=== PATIENT | male | born 1970 | race Caucasian/White ===

== ENCOUNTER 2021-07-01 23:49 | Inpatient (IN) | payer OTHER, SELFPAY ==
[2021-07-01 23:56] VITALS: BP 105/73; PULSE 95; RESP 18; TEMP 37.3; O2SAT 96; BMI 25.1
--- NOTE | 2021-07-01 23:57 | ED_ITS ---
HPI - Psych General Chief Complaint: Psychiatric Symptoms Stated Complaint: si Time Seen by Provider: 07/01/21 23:57 Source: patient Mode of arrival: EMS Limitations: no limitations History of Present Illness MD complaint: suicidal ideation and feels depressed Onset (ago): day(s) Duration: getting worse History of same: No Relieving factors: none Context: significant life stressor Associated psychiatric symptoms: depression and suicidal ideation Associated symptoms: denies other symptoms Treatments prior to arrival: none If self harm: admits thoughts of self harm Related Data Allergies Allergy/AdvReac Type Severity Reaction Status Date / Time atorvastatin [From Lipitor] Allergy Intermediate Rash Verified 07/02/21 00:13 Review of Systems Review of Systems: Constitutional : No Fever, No Chills ENT/Mouth : No Ear Pain, No Nasal Congestion, No sore throat Eyes: No Eye Pain, No Swelling, No Redness Cardiovascular : No Chest Pain, No SOB Respiratory : No Cough, No Sputum, No Dyspnea Gastrointestinal : No Nausea, No Vomiting, No Diarrhea, No Hematochezia, No Melena Genitourinary : No Dysuria, No Urinary Frequency, No Hematuria Musculoskeletal : No Myalgias Skin : No Skin Lesions, No rash Neuro : No Weakness, No Numbness, No Paresthesias, No Dizziness, No Headache Psych : positive Anxiety, positive Depression, positive SI no HI Heme/Lymph: No Lymphadenopathy Endocrine : No Polyuria, No Polydipsia All other systems reviewed and are negative [facility] Past Medical History Attestation statement: The following information was validated with the patient. Medical History CAD (coronary artery disease) Social History Social History (Updated 07/02/21 @ 00:28 by Dacia Chapin DO) Patient Tobacco Use Status: Current everyday Tobacco user Use of substances other than those prescribed or required for medical reasons: No Advance Directives: No Advance Directives Information Provided: Yes Physical Exam Vital Signs: Vital Signs: Last Vital Signs Temp 99.1 F 07/01/21 23:56 Pulse 95 07/01/21 23:56 Resp 18 07/01/21 23:56 BP 105/73 07/01/21 23:56 Pulse Ox 96 07/01/21 23:56 Body Mass Index 25.1 Appearance: Alert. Oriented X3. No acute distress. Eyes: Pupils equal, round and reactive to light. ENT: Pharynx normal. Neck: Normal inspection. Neck supple. CVS: Normal heart rate and rhythm. Pulses normal. Respiratory: No respiratory distress. Breath sounds normal. Abdomen: Soft and non-tender. Skin: Skin warm and dry. Normal skin color. Normal skin turgor. Extremities: No lower extremity edema. No calf ttp Neuro: Oriented X 3. No motor deficit. No sensory deficit. CN 2- 12 intact Psych: depressed, calm, flat affect Course Course Course Narrative: Physician observation started at 135am Patient placed in physician observation because the patient needed more time for placement after he was deemed an inpatient bed search by care team. At the time observation was started the patient's vitals were stable, patient is alert and oriented but slightly anxious, Neuro: nonfocal, CV RRR, Lungs clear MDM - Psych MDM Narrative Medical decision making narrative: 50 yo male here with depression and SI - no medical complaints will obtain labs then CARE team consult - dispo per results a nd findings. Lab Data Result diagrams: 07/02/21 00:23 07/02/21 00:23 Labs: Lab Results 07/02/21 07/02/21 07/02/21 Range/Units 00:10 00:11 00:11 WBC (4.8-10.8) X10*3/uL RBC (4.60-5.80) X10*6/uL Hgb (14.0-18.0) g/dl Hct (42.0-52.0) % MCV (80.0-98.0) fL MCH (27.0-33.0) pg MCHC (31.0-36.0) g/dl RDW (11.0-16.0) % Plt Count (160-400) X10*3/uL MPV (9.4-12.4) fL Immature Gran % (Auto) (0.0-0.4) % Neut % (Auto) (45-73) % Lymph % (Auto) (20-40) % [place] % (Auto) (2-11) % Eos % (Auto) (0-4) % Baso % (Auto) (0-2) % Lymph # (Auto) (1.2-4.9) X10*3/uL [place] # (Auto) (0.1-1.2) X10*3/uL Eos # (Auto) (0.0-0.4) X10*3/uL Baso # (Auto) (0.0-0.2) X10*3/uL Abs Immat Gran (auto) (0.00-0.03) X10*3/uL Absolute Neuts (auto) (2.0-8.3) x10*3/uL Absolute Nucleated RBC (0.0-0.012) X10*3/uL Nucleated RBC % (auto) (0.0-0.2) /100WBC Sodium (135-145) mmol/L Potassium (3.3-5.1) mmol/L Chloride (96-108) mmol/L Carbon Dioxide (22-29) mmol/L Anion Gap (12-20) BUN (9-16) mg/dL Creatinine (0.5-1.4) mg/dL Estim Creat Clear Calc Estimated GFR Random Glucose (60-115) mg/dL Calcium (8.4-10.2) mg/dL Total Bilirubin (0.0-1.0) mg/dL Direct Bilirubin (0.0-0.5) mg/dL AST (5-37) U/L ALT (0-40) U/L Alkaline Phosphatase (39-117) U/L Total Protein (6.5-8.0) g/dL Albumin (3.5-5.0) g/dL Urine Color YELLOW Urine Appearance CLEAR Urine pH 6.0 (5.0-8.0) Ur Specific [place] >= 1.030 H (1.005-1.025) Urine Protein NEG (NEG-TRACE) MG/DL Urine Glucose (UA) NEG (NEG) MG/DL Urine Ketones 15 (NEG) MG/DL Urine Blood 2+ H (NEG) Urine Nitrite NEG (NEG) Ur Leukocyte Esterase NEG (NEG) Urine RBC 1-4 (0) /HPF Urine WBC 0-2 (0-4) /HPF Ur Squamous Epith Cells TRACE /LPF Urine Bacteria TRACE /LPF Urine Mucus 3+ /LPF Urine Opiates Screen Not Detected (Not Detect) Urine Fentanyl Screen Not Detected (Not Detect) Ur Barbiturates Screen Not Detected (Not Detect) Ur Phencyclidine Scrn Not Detected (Not Detect) Ur Amphetamines Screen Not Detected (Not Detect) U Benzodiazepines Scrn Not Detected (Not Detect) Urine Cocaine Screen Not Detected (Not Detect) U Marijuana (THC) Screen POSITIVE H (Not Detect) Ethyl Alcohol mg/dL COVID-19 ([facility]) Negative (Negative) COVID-19 Clin Com See Note 07/02/21 07/02/21 07/02/21 Range/Units 00:23 00:23 00:23 WBC 10.1 (4.8-10.8) X10*3/uL RBC 4.62 (4.60-5.80) X10*6/uL Hgb 14.9 (14.0-18.0) g/dl Hct 42.3 (42.0-52.0) % MCV 91.6 (80.0-98.0) fL MCH 32.3 (27.0-33.0) pg MCHC 35.2 (31.0-36.0) g/dl RDW 12.0 (11.0-16.0) % Plt Count 293 (160-400) X10*3/uL MPV 9.8 (9.4-12.4) fL Immature Gran % (Auto) 0.2 (0.0-0.4) % Neut % (Auto) 72.9 (45-73) % Lymph % (Auto) 19.0 L (20-40) % [place] % (Auto) 6.3 (2-11) % Eos % (Auto) 0.8 (0-4) % Baso % (Auto) 0.8 (0-2) % Lymph # (Auto) 1.9 (1.2-4.9) X10*3/uL [place] # (Auto) 0.6 (0.1-1.2) X10*3/uL Eos # (Auto) 0.1 (0.0-0.4) X10*3/uL Baso # (Auto) 0.1 (0.0-0.2) X10*3/uL Abs Immat Gran (auto) 0.02 (0.00-0.03) X10*3/uL Absolute Neuts (auto) 7.4 (2.0-8.3) x10*3/uL Absolute Nucleated RBC 0.000 (0.0-0.012) X10*3/uL Nucleated RBC % (auto) 0.0 (0.0-0.2) /100WBC Sodium 138 (135-145) mmol/L Potassium 3.4 (3.3-5.1) mmol/L Chloride 106 (96-108) mmol/L Carbon Dioxide 23 (22-29) mmol/L Anion Gap 12 (12-20) BUN 15 (9-16) mg/dL Creatinine 0.95 (0.5-1.4) mg/dL Estim Creat Clear Calc 91.9 Estimated GFR > 60 Random Glucose 114 (60-115) mg/dL Calcium 9.1 (8.4-10.2) mg/dL Total Bilirubin 0.8 (0.0-1.0) mg/dL Direct Bilirubin 0.3 (0.0-0.5) mg/dL AST 19 (5-37) U/L ALT 12 (0-40) U/L Alkaline Phosphatase 67 (39-117) U/L Total Protein 7.2 (6.5-8.0) g/dL Albumin 4.3 (3.5-5.0) g/dL Urine Color Urine Appearance Urine pH (5.0-8.0) Ur Specific [place] (1.005-1.025) Urine Protein (NEG-TRACE) MG/DL Urine Glucose (UA) (NEG) MG/DL Urine Ketones (NEG) MG/DL Urine Blood (NEG) Urine Nitrite (NEG) Ur Leukocyte Esterase (NEG) Urine RBC (0) /HPF Urine WBC (0-4) /HPF Ur Squamous Epith Cells /LPF Urine Bacteria /LPF Urine Mucus /LPF Urine Opiates Screen (Not Detect) Urine Fentanyl Screen (Not Detect) Ur Barbiturates Screen (Not Detect) Ur Phencyclidine Scrn (Not Detect) Ur Amphetamines Screen (Not Detect) U Benzodiazepines Scrn (Not Detect) Urine Cocaine Screen (Not Detect) U Marijuana (THC) Screen (Not Detect) Ethyl Alcohol < 10 mg/dL COVID-19 ([facility]) (Negative) COVID-19 Clin Com Discharge Plan Discharge Clinical Impression: Depression Qualifiers: Depression Type: unspecified Qualified Code(s): F32.A - Depression, unspecified
[2021-07-02 00:29] LABS: MANUAL DIFF FLAG NO
[2021-07-02 00:36] LABS: Basophils Absolute Auto 0.1 X10*3/uL (0.0-0.2); Basophils Percent Auto 0.8 % (0-2); Eosinophils Absolute Auto 0.1 X10*3/uL (0.0-0.4); Eosinophils Percent Auto 0.8 % (0-4); Hematocrit 42.3 % (42.0-52.0); Hemoglobin 14.9 g/dl (14.0-18.0); Imm Gran Abs Auto 0.02 X10*3/uL (0.00-0.03); Imm Gran Pct Auto 0.2 % (0.0-0.4); Lymphocytes Absolute Auto 1.9 X10*3/uL (1.2-4.9); Mean Corpuscular HGB Conc 35.2 g/dl (31.0-36.0); Mean Corpuscular Hemoglobin 32.3 pg (27.0-33.0); Mean Corpuscular Volume 91.6 fL (80.0-98.0); Mean Platelet Volume 9.8 fL (9.4-12.4); Monocytes Absolute Auto 0.6 X10*3/uL (0.1-1.2); Monocytes Percent Auto 6.3 % (2-11); Neutrophils Absolute Auto 7.4 x10*3/uL (2.0-8.3); Neutrophils Percent Auto 72.9 % (45-73); Platelet Count 293 X10*3/uL (160-400); Red Blood Count 4.62 X10*6/uL (4.60-5.80); White Blood Count 10.1 X10*3/uL (4.8-10.8)
[2021-07-02 00:38] LABS: Appearance Urine CLEAR; Color Urine YELLOW; Glucose Urine UA NEG (NEG); Leukocyte Esterase Urine NEG (NEG); Nitrite Urine NEG (NEG); Specific Gravity - Urine >= 1.030 (1.005-1.025); UACC Culture Trigger NO; Urine Blood 2+ (NEG); Urine Ketones 15 MG/DL (NEG); Urine Protein NEG (NEG-TRACE)
[2021-07-02 00:43] LABS: Bacteria Urine TRACE /LPF; Mucus Urine 3+ /LPF; Squamous Epithelial Cell Urine TRACE /LPF; WBC Urine 0-2 /HPF (0-4)
[2021-07-02 00:50] LABS: COVID-19 Test Negative (Negative); IDNOW Serial# 9DD0AD1C
[2021-07-02 00:53] LABS: Alanine Aminotransferase 12 U/L (0-40); Albumin Level 4.3 g/dL (3.5-5.0); Alkaline Phosphatase 67 U/L (39-117); Anion Gap 12 (12-20); Aspartate Amino Transferase 19 U/L (5-37); Bilirubin Direct 0.3 mg/dL (0.0-0.5); Bilirubin Total 0.8 mg/dL (0.0-1.0); Blood Urea Nitrogen 15 mg/dL (9-16); Calcium 9.1 mg/dL (8.4-10.2); Carbon Dioxide 23 mmol/L (22-29); Chloride 106 mmol/L (96-108); Creatinine Clr Calc Pharmacy 91.9; Estimated Glomerular Filt Rate > 60; Ethanol < 10 mg/dL; Glucose Random 114 mg/dL (60-115); Potassium 3.4 mmol/L (3.3-5.1); Sodium 138 mmol/L (135-145); Total Protein 7.2 g/dL (6.5-8.0)
[2021-07-02 00:56] LABS: Amphetamine Screen Urine Not Detected (Not Detect); Barbiturates, Urine Not Detected (Not Detect); Benzodiazepines Screen Urine Not Detected (Not Detect); Cannabinoid Screen Urine POSITIVE (Not Detect); Cocaine Screen Urine Not Detected (Not Detect); Fentanyl, urine Not Detected (Not Detect); Opiate Screen Urine Not Detected (Not Detect); Phencyclidine Screen Urine Not Detected (Not Detect)
[2021-07-02] MEDS: LORazepam 1 MG TABLET PO (01:39)
--- NOTE | 2021-07-02 05:27 | PC.NURSE ---
Patient slept through the night, no distress observed/reported, patient received Ativan 1 mg for sleep and restlessness before going to bed and had with + effect, VSS, contracted for the safety, behavior appropriate, help seeking,mood depressed and affect flat, patient was assessed by Care Team section 12 inpatient bed search, will continue to monitor.
--- NOTE | 2021-07-02 07:04 | PC.NURSE ---
patient appears to remain asleep at present respirations are even and unlabored, patient appears in no distress
--- NOTE | 2021-07-02 12:18 | PC.NURSE ---
client at this time only wants us to contact/communicate with daughter Eleanor Bravo [phone]
[2021-07-02] MEDS: hydrOXYzine HCL 25 MG TABLET PO (14:54)
--- NOTE | 2021-07-03 | ECG_ITS ---
Test Reason : MED CLEARANCE Blood Pressure : / mmHG Vent. Rate : 074 BPM Atrial Rate : 074 BPM P-R Int : 156 ms QRS Dur : 094 ms QT Int : 372 ms P-R-T Axes : 037 057 052 degrees QTc Int : 412 ms Normal sinus rhythm RSR' or QR pattern in V1 suggests right ventricular conduction delay Otherwise normal ECG No previous ECGs available Referred By: Merrick Gaspar Electronically Signed By:ANNABEL RIVERA MD
--- NOTE | 2021-07-03 06:08 | PC.NURSE ---
Patient slept through he night, no distress observed/reported, behavior appropriate, medication compliant, appetite good, contracted for the safety, disposition per care team is section 12 inpatient bed search, will continue to monitor.
[2021-07-03 06:57] VITALS: BP 110/72; PULSE 87; RESP 17; TEMP 37.1; O2SAT 97
--- NOTE | 2021-07-03 07:06 | PC.NURSE ---
patient appears to remain at rest respirations are even and unlabored, patient appears in no distress
--- NOTE | 2021-07-03 13:15 | PC.NURSE ---
client asked in presence of provider to be given long underwear from closet, searched and provided to patient.
[2021-07-03 16:20] VITALS: BP 121/75; PULSE 90; RESP 18; TEMP 36.1; O2SAT 98
[2021-07-03] MEDS: hydrOXYzine HCL 25 MG TABLET PO (17:16)
--- NOTE | 2021-07-03 19:16 | PC.ADMIT ---
50 y.o. male admitted from [facility] ED at 1552 for Psychiatric evaluation. Per Crisis report: this is patients 1st inpatient admission. Pt reports that him and his are going through and and has been looking for easiest ways to not wake up . 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 Pt called ambulance while he was walking to his daughters home from [place] to [place]. On admission Pt A&O, 03/01 anxiety, 06/01 depression, guarded and cooperative. Pt reports that since 2018 he has been feeling overwhelmed and he just recently found out that his of 17 years has an affair. Pt reports that they will be going through a divorce. Pt is future oriented and reports that he would like to have therapy to help him in this time of adjustment. Pt reports that he plans to go after discharge back to the house and stay in the basement. Pt reports that he wants to be present in his kids lives. Pt hopeless d/t relationship and losing his home and family. Pt denies si,hi,avh a this time. PMHx: ID with stent 2012. Pt denies any medical concerns this time. Pt on 15 min checks. CV.
[2021-07-03] MEDS: traZODone HCL 50 MG TABLET PO (21:02)
[2021-07-04] MEDS: hydrOXYzine HCL 25 MG TABLET PO ×2 (08:51→14:32)
[2021-07-04 10:09] VITALS: BP 128/69; PULSE 82; RESP 16; TEMP 36.5; O2SAT 96
--- NOTE | 2021-07-04 10:46 | P.HPPS_ITS ---
HPI Date of Service: 07/04/21 Chief Complaint: Depression with SI Sources of Information: patient interviewed and chart reviewed HPI Subjective Notes: Ray Warning and Conditional Voluntary Healthcare Proxy: No Guardianship: No Medical Problems Affecting Mental Status: No Narrative: 50 yo male with a history of depression presents for assistance with increase in sx and increase in SI. Pt reports searching the internet finding ways to . 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 Pt to ER via EMS. Reports a history of anxiety. Identifies precipitants-pending divorce after 17 years of marriage, co-parenting of a 15 yo and a 9 yo, bankruptcy and having reality set in via having to sell their home which they purchased in 2018 and inform the children as he had promised they would live their for their entire lives. Past Psychiatric History: Denies Medical Evaluation Reviewed: Yes [facility] Medical History (Updated 07/04/21 @ 18:53 by Ruth Lloyd, BROOKE) CAD (coronary artery disease) Recurrent major depression-severe Narrative: [place] 2012 with stenting Family History: Denies Social History: Raised by his mom who was single and worked at [employer]. Three brothers, 1 sister Four children 32yo and 28yo by his previous relationship 15 yo and 9 yo by his marriage 18 year employee of a [employer] This was pt's first marriage-they have not been able to reconcile-he has filed and resended twice and the relationship is beyond repair. Substance History: Daily cannabis to assist with sleep Trauma History: this loss is traumatic Diagnostics Vital Signs (24Hr): Vital Signs - 24 hr 07/03/21 16:20 07/04/21 10:09 Temperature 97.0 F 97.7 F Pulse Rate 90 82 Respiratory Rate 18 16 Blood Pressure 121/75 128/69 Pulse Oximetry 98 96 Body Mass Index 25.1 Labs Results: 07/02/21 00:23 07/02/21 00:23 Meds/Allergies Meds Home Medications Acetaminophen (Acetaminophen 325 Mg Tablet) 650 mg PO Q6H PRN PRN Reason: Headache/Pain Mild Scale (1-3) Al Hydroxide/Mg Hydroxide (Magnesium Hydrox/Alum Hydrox 30 Ml Oral.Susp) 30 ml PO Q6H PRN PRN Reason: Heartburn/Nausea Hydroxyzine HCl (Hydroxyzine Hcl 25 Mg Tablet) 25 mg PO QID PRN PRN Reason: Anxiety Last Admin: 07/04/21 14:32 Dose: 25 mg Documented by: Magnesium Hydroxide (Milk Of Magnesia 30 Ml Oral.Susp) 30 ml PO DAILY PRN PRN Reason: Constipation Nicotine Polacrilex (Nicotine Polacrilex Lozenge 4 Mg Lozenge) 4 mg BUCCAL Q2H PRN PRN Reason: Nicotine Cravings Sertraline HCl (Sertraline Hcl 25 Mg Tablet) 25 mg PO DAILY FAUSTO Trazodone HCl (Trazodone Hcl 50 Mg Tablet) 50 mg PO BEDTIME PRN PRN Reason: Insomnia Last Admin: 07/03/21 21:02 Dose: 50 mg Documented by: Allergies Allergies Allergy/AdvReac Type Severity Reaction Status Date / Time atorvastatin [From Lipitor] Allergy Intermediate Rash Verified 07/02/21 00:13 Mental Status Exam Mental Status Exam Patient Appearance: Appropriate Patient Orientation: Person, Place, Time and Situation Level of Consciousness: Alert Patient Behavior: Appropriate, Talkative, Cooperative and Good Eye Contact Mood Description: Depressed Affect Description: Flat Patient Cognition Impaired: No Ability to Follow Directions: Good Speech Pattern: Spontaneous Speech Memory Description: Intact Hallucinations: None Delusions: Not Present Perceptual Disturbances: Derealization Thought Process: Rumination Thought Content: positive for Intact and positive for Suicidal Ideation Depressive Symptoms: Increased Anxiety, Insomnia, Difficulty Sleeping, Crying Spells, Hopelessness, Unhappiness, Increased Fatigue, Thoughts of /Suicide, Low Self Esteem and Difficulty Concentrating Judgement: Fair Assessment & Plan Assessment & Plan (1) Recurrent major depression-severe: Status: Acute Code(s): F33.2 - Major depressive disorder, recurrent severe without psychotic features Assessment and Plan: 50 yo male, history of anxiety, presents with increase in depressive sx with SI, plans in response to impending loss of marriage, bankruptcy and impending loss of his home. Pt has been considering methods of suicide, via internet search and thinking about drving his fuel truck into a train. Pt came for help voluntarily and would like a medication trial but is extremely apprehensive regarding SE and medications making him lethargic. Plan: Sertraline 25 mg hs with titration as tolerated. Continue previous regime MVI 1 tab daily Collateral contacts with family. Patient educated on: medication risk/benefits Informed Consent: understands and further education needed Reason for continued inpatient stay Substantial Risk for: harm to self, inability to function and rapid decompensation
[2021-07-04 20:45] VITALS: BP 115/65; PULSE 84; TEMP 36
[2021-07-04] MEDS: traZODone HCL 50 MG TABLET PO (20:46)
[2021-07-05 06:00] VITALS: BP 108/59; PULSE 89; RESP 18; TEMP 36.5; O2SAT 99
[2021-07-05 08:01] LABS: Estimated Average Glucose 82 mg/dL; Hemoglobin A1c % 4.5 %
[2021-07-05 08:16] LABS: Cholesterol 175 mg/dL; HDL Cholesterol 37 mg/dL; LDL Cholesterol Calculated 107 mg/dl; Triglycerides 155 mg/dL
[2021-07-05 08:37] LABS: Thyroid Stimulating Hormone 1.21 uIU/mL (0.32-4.0)
[2021-07-05] MEDS: Sertraline HCL 25 MG TABLET PO (09:01)
[2021-07-05] MEDS: hydrOXYzine HCL 25 MG TABLET PO ×3 (09:03→19:45)
--- NOTE | 2021-07-05 10:36 | HO.PSYCHPN ---
Subjective Subjective Date of Service: 07/05/21 Reason For Visit: Depression with SI Subjective Notes: Conditional Voluntary Medical Problems Affecting Mental Status: No Interim History: Patient was seen on rounds today. Records, medications and treatment plan and labs were reviewed. He continues to be somewhat anxious about his current stressors and his divorce. He feels that his stated. He has been depressed and anxious. He is attending groups. He is med compliant. No complaints or side effects. Eating and sleeping adequately. No changes were made today Review of Systems Constitutional: Reports no additional constitutional complaints, Reports difficulty sleeping and Reports lethargy Eyes: Reports no additional eye complaints Reports system reviewed and no additional complaints, except as documented Cardiovascular: Reports no additional cardiovascular complaints and Reports other ([place] 2013 with stenting) Respiratory: Reports no additional respiratory complaints Gastrointestinal: Reports no additional gastrointestinal complaints Genitourinary: Reports no additional male genitourinary complaints Musculoskeletal: Reports no additional musculoskeletal complaints Skin/Breast: Reports system reviewed and no additional complaints, except as docu Reports system reviewed and no additional complaints, except as documented and Reports behavioral changes Psychiatric: Reports abnormal sleep pattern, Reports anxiety, Reports behavioral changes, Reports change in appetite, Reports depression, Reports difficulty concentrating, Reports hopelessness, Reports irritability, Reports anhedonia, Reports mood swings, Reports panic attacks and Reports suicidal ideation Endocrine: Reports no additional endocrine complaints Hematologic/Lymphatic: Reports no additional hematologic/lymphatic complaints Allergic/Immunologic: Reports no additional allergic/immunologic complaints Diagnostics Vital Signs (24Hr): Vital Signs - 24 hr 07/04/21 20:45 07/05/21 06:00 Temperature 96.8 F 97.7 F Pulse Rate 84 89 Respiratory Rate 18 Blood Pressure 115/65 108/59 L Pulse Oximetry 99 Body Mass Index 25.1 Labs Results: 07/02/21 00:23 07/02/21 00:23 Labs: Laboratory Results - last 48 hr 07/05/21 07/05/21 07:32 07:32 Estimat Average Glucose 82 Hemoglobin A1c % 4.5 Triglycerides 155 Cholesterol 175 LDL Cholesterol, Calc 107 HDL Cholesterol 37 TSH 1.21 Medications Medications Current Medications Acetaminophen (Acetaminophen 325 Mg Tablet) 650 mg PO Q6H PRN PRN Reason: Headache/Pain Mild Scale (1-3) Al Hydroxide/Mg Hydroxide (Magnesium Hydrox/Alum Hydrox 30 Ml Oral.Susp) 30 ml PO Q6H PRN PRN Reason: Heartburn/Nausea Hydroxyzine HCl (Hydroxyzine Hcl 25 Mg Tablet) 25 mg PO QID PRN PRN Reason: Anxiety Last Admin: 07/05/21 09:03 Dose: 25 mg Documented by: Magnesium Hydroxide (Milk Of Magnesia 30 Ml Oral.Susp) 30 ml PO DAILY PRN PRN Reason: Constipation Nicotine Polacrilex (Nicotine Polacrilex Lozenge 4 Mg Lozenge) 4 mg BUCCAL Q2H PRN PRN Reason: Nicotine Cravings Sertraline HCl (Sertraline Hcl 25 Mg Tablet) 25 mg PO DAILY FAUSTO Last Admin: 07/05/21 09:01 Dose: 25 mg Documented by: Trazodone HCl (Trazodone Hcl 50 Mg Tablet) 50 mg PO BEDTIME PRN PRN Reason: Insomnia Last Admin: 07/04/21 20:46 Dose: 50 mg Documented by: Allergies Allergies Allergy/AdvReac Type Severity Reaction Status Date / Time atorvastatin [From Lipitor] Allergy Intermediate Rash Verified 07/02/21 00:13 Assessment & Plan Assessment & Plan (1) Recurrent major depression-severe: Status: Acute Code(s): F33.2 - Major depressive disorder, recurrent severe without psychotic features Assessment and Plan: 50 yo male, history of anxiety, presents with increase in depressive sx with SI, plans in response to impending loss of marriage, bankruptcy and impending loss of his home. Pt has been considering methods of suicide, via internet search and thinking about drving his fuel truck into a train. Pt came for help voluntarily and would like a medication trial but is extremely apprehensive regarding SE and medications making him lethargic. Plan: Sertraline 25 mg hs with titration as tolerated. Continue previous regime MVI 1 tab daily Collateral contacts with family. 07/05/2021 continue current regimen and plans. I spent minutes with the patient and/or on the patient floor today, greater than?50% of which was spent counseling/coordinating care. Reason for contiued inpatient stay Substantial Risk for: other
[2021-07-05 17:10] VITALS: BP 107/69; PULSE 82; TEMP 36.7
[2021-07-05] MEDS: traZODone HCL 50 MG TABLET PO (19:45)
[2021-07-06] MEDS: traZODone HCL 50 MG TABLET PO ×2 (02:27→21:09)
[2021-07-06 06:00] VITALS: BP 121/61; PULSE 73; TEMP 36.9; O2SAT 97
[2021-07-06] MEDS: Sertraline HCL 25 MG TABLET PO (08:36)
[2021-07-06] MEDS: hydrOXYzine HCL 25 MG TABLET PO ×2 (08:36→21:10)
--- NOTE | 2021-07-06 09:57 | HO.PSYCHPN ---
Subjective Subjective Date of Service: 07/06/21 Reason For Visit: Depression with SI Interim History: Patient was seen and discussed in rounds today. He has been less anxious. No hallucinations. No SI. Continues to be isolative and in the isolation room by choice because of his roommate needing one-to-one level of observation. He denies any side effects. Eating and sleeping adequately. No changes were made today Review of Systems Review of Systems Yes all other systems are reviewed and are negative Mental Status Exam Mental Status Exam Patient Appearance: Appropriate Patient Orientation: Person, Place, Time and Situation Level of Consciousness: Alert Patient Behavior: Appropriate, Talkative, Cooperative and Good Eye Contact Mood Description: Depressed Affect Description: Flat Patient Cognition Impaired: No Ability to Follow Directions: Good Speech Pattern: Spontaneous Speech Memory Description: Intact Hallucinations: None Delusions: Not Present Perceptual Disturbances: Derealization Thought Process: Rumination Thought Content: positive for Intact and positive for Suicidal Ideation Depressive Symptoms: Increased Anxiety, Insomnia, Difficulty Sleeping, Crying Spells, Hopelessness, Unhappiness, Increased Fatigue, Thoughts of /Suicide, Low Self Esteem and Difficulty Concentrating Judgement: Fair Diagnostics Vital Signs (24Hr): Vital Signs - 24 hr 07/05/21 17:10 07/06/21 06:00 Temperature 98.1 F 98.5 F Pulse Rate 82 73 Blood Pressure 107/69 121/61 Pulse Oximetry 97 Body Mass Index 25.1 Labs Results: 07/02/21 00:23 07/02/21 00:23 Labs: Laboratory Results - last 48 hr 07/05/21 07/05/21 07:32 07:32 Estimat Average Glucose 82 Hemoglobin A1c % 4.5 Triglycerides 155 Cholesterol 175 LDL Cholesterol, Calc 107 HDL Cholesterol 37 TSH 1.21 Medications Medications Current Medications Acetaminophen (Acetaminophen 325 Mg Tablet) 650 mg PO Q6H PRN PRN Reason: Headache/Pain Mild Scale (1-3) Al Hydroxide/Mg Hydroxide (Magnesium Hydrox/Alum Hydrox 30 Ml Oral.Susp) 30 ml PO Q6H PRN PRN Reason: Heartburn/Nausea Hydroxyzine HCl (Hydroxyzine Hcl 25 Mg Tablet) 25 mg PO QID PRN PRN Reason: Anxiety Last Admin: 07/06/21 08:36 Dose: 25 mg Documented by: Magnesium Hydroxide (Milk Of Magnesia 30 Ml Oral.Susp) 30 ml PO DAILY PRN PRN Reason: Constipation Nicotine Polacrilex (Nicotine Polacrilex Lozenge 4 Mg Lozenge) 4 mg BUCCAL Q2H PRN PRN Reason: Nicotine Cravings Sertraline HCl (Sertraline Hcl 25 Mg Tablet) 25 mg PO DAILY FAUSTO Last Admin: 07/06/21 08:36 Dose: 25 mg Documented by: Trazodone HCl (Trazodone Hcl 50 Mg Tablet) 50 mg PO BEDTIME PRN PRN Reason: Insomnia Last Admin: 07/06/21 02:27 Dose: 50 mg Documented by: Allergies Allergies Allergy/AdvReac Type Severity Reaction Status Date / Time atorvastatin [From Lipitor] Allergy Intermediate Rash Verified 07/02/21 00:13 Assessment & Plan Assessment & Plan (1) Recurrent major depression-severe: Status: Acute Code(s): F33.2 - Major depressive disorder, recurrent severe without psychotic features Assessment and Plan: 50 yo male, history of anxiety, presents with increase in depressive sx with SI, plans in response to impending loss of marriage, bankruptcy and impending loss of his home. Pt has been considering methods of suicide, via internet search and thinking about drving his fuel truck into a train. Pt came for help voluntarily and would like a medication trial but is extremely apprehensive regarding SE and medications making him lethargic. Plan: Sertraline 25 mg hs with titration as tolerated. Continue previous regime MVI 1 tab daily Collateral contacts with family. 07/05/2021 continue current regimen and plans. 07/06/2021 continue current regimen and plans I spent minutes with the patient and/or on the patient floor today, greater than?50% of which was spent counseling/coordinating care. Reason for contiued inpatient stay Substantial Risk for: other
[2021-07-06 16:25] VITALS: BP 111/61; PULSE 82; TEMP 36.8
[2021-07-07] MEDS: traZODone HCL 50 MG TABLET PO (00:55)
[2021-07-07] MEDS: hydrOXYzine HCL 25 MG TABLET PO (00:55)
[2021-07-07] MEDS: Sertraline HCL 25 MG TABLET PO (08:31)
[2021-07-07 09:08] LABS: Folate 16.3 ng/mL (> or = 4.0); Vitamin B12 379 pg/mL (200-900)
--- NOTE | 2021-07-07 17:49 | PM.PSYDC ---
DS: Providers Provider Date of Service: 07/07/21 Date of admission: 07/03/21 14:55 Date of discharge: 07/07/21 Primary care physician: Louann Christianson MD Admitting clinician: Ruth Lloyd Attending physician on admission: Rishabh Tong Attending physician on discharge: Rishabh Tong Discharging clinician: Ruth Lloyd DS: Diagnosis Discharge Diagnosis (1) Recurrent major depression-severe: Status: Acute DS: Medications Discharge Medications Home Medications: Previous Rx's Medication Instructions Recorded hydroxyzine HCl 25 mg tablet 25 mg PO QID PRN #120 tab 07/07/21 nicotine (polacrilex) 4 mg buccal 4 mg BUCCAL Q2H PRN #81 ea 07/07/21 mini lozenge sertraline 50 mg tablet 50 mg PO DAILY #30 tab 07/07/21 trazodone 100 mg tablet 100 mg PO BEDTIME PRN #30 tab 07/07/21 Mental Status Exam Mental Status Exam Patient Appearance: Appropriate Patient Orientation: Person, Place, Time and Situation Level of Consciousness: Alert Patient Behavior: Appropriate, Talkative, Cooperative and Good Eye Contact Mood Description: Flat Affect Description: Flat Patient Cognition Impaired: No Ability to Follow Directions: Good Speech Pattern: Spontaneous Speech Memory Description: Intact Hallucinations: None Delusions: Not Present Perceptual Disturbances: Derealization Thought Process: Rumination Thought Content: positive for Intact Depressive Symptoms: Increased Anxiety, Insomnia, Difficulty Sleeping, Crying Spells, Unhappiness, Increased Fatigue, Low Self Esteem and Difficulty Concentrating Judgement: Good Data Data Completed and Pending Completed studies during hospitalization [Text1]: 07/02/21 07/02/21 07/02/21 00:10 00:11 00:11 WBC RBC Hgb Hct MCV MCH MCHC RDW Plt Count MPV Immature Gran % (Auto) Neut % (Auto) Lymph % (Auto) [place] % (Auto) Eos % (Auto) Baso % (Auto) Lymph # (Auto) [place] # (Auto) Eos # (Auto) Baso # (Auto) Abs Immat Gran (auto) Absolute Neuts (auto) Absolute Nucleated RBC Nucleated RBC % (auto) Sodium Potassium Chloride Carbon Dioxide Anion Gap BUN Creatinine Estim Creat Clear Calc Estimated GFR Random Glucose Estimat Average Glucose Hemoglobin A1c % Calcium Total Bilirubin Direct Bilirubin AST ALT Alkaline Phosphatase Total Protein Albumin Triglycerides Cholesterol LDL Cholesterol, Calc HDL Cholesterol Vitamin B12 Folate TSH Urine Color YELLOW Urine Appearance CLEAR Urine pH 6.0 Ur Specific [place] >= 1.030 H Urine Protein NEG Urine Glucose (UA) NEG Urine Ketones 15 Urine Blood 2+ H Urine Nitrite NEG Ur Leukocyte Esterase NEG Urine RBC 1-4 Urine WBC 0-2 Ur Squamous Epith Cells TRACE Urine Bacteria TRACE Urine Mucus 3+ Urine Opiates Screen Not Detected Urine Fentanyl Screen Not Detected Ur Barbiturates Screen Not Detected Ur Phencyclidine Scrn Not Detected Ur Amphetamines Screen Not Detected U Benzodiazepines Scrn Not Detected Urine Cocaine Screen Not Detected U Marijuana (THC) Screen POSITIVE H Ethyl Alcohol COVID-19 ([facility]) Negative COVID-19 Clin Com See Note 07/02/21 07/02/21 07/02/21 00:23 00:23 00:23 WBC 10.1 RBC 4.62 Hgb 14.9 Hct 42.3 MCV 91.6 MCH 32.3 MCHC 35.2 RDW 12.0 Plt Count 293 MPV 9.8 Immature Gran % (Auto) 0.2 Neut % (Auto) 72.9 Lymph % (Auto) 19.0 L [place] % (Auto) 6.3 Eos % (Auto) 0.8 Baso % (Auto) 0.8 Lymph # (Auto) 1.9 [place] # (Auto) 0.6 Eos # (Auto) 0.1 Baso # (Auto) 0.1 Abs Immat Gran (auto) 0.02 Absolute Neuts (auto) 7.4 Absolute Nucleated RBC 0.000 Nucleated RBC % (auto) 0.0 Sodium 138 Potassium 3.4 Chloride 106 Carbon Dioxide 23 Anion Gap 12 BUN 15 Creatinine 0.95 Estim Creat Clear Calc 91.9 Estimated GFR > 60 Random Glucose 114 Estimat Average Glucose Hemoglobin A1c % Calcium 9.1 Total Bilirubin 0.8 Direct Bilirubin 0.3 AST 19 ALT 12 Alkaline Phosphatase 67 Total Protein 7.2 Albumin 4.3 Triglycerides Cholesterol LDL Cholesterol, Calc HDL Cholesterol Vitamin B12 Folate TSH Urine Color Urine Appearance Urine pH Ur Specific [place] Urine Protein Urine Glucose (UA) Urine Ketones Urine Blood Urine Nitrite Ur Leukocyte Esterase Urine RBC Urine WBC Ur Squamous Epith Cells Urine Bacteria Urine Mucus Urine Opiates Screen Urine Fentanyl Screen Ur Barbiturates Screen Ur Phencyclidine Scrn Ur Amphetamines Screen U Benzodiazepines Scrn Urine Cocaine Screen U Marijuana (THC) Screen Ethyl Alcohol < 10 COVID-19 ([facility]) COVID-19 Clin Com 07/05/21 07/05/21 07/05/21 07:32 07:32 07:32 WBC RBC Hgb Hct MCV MCH MCHC RDW Plt Count MPV Immature Gran % (Auto) Neut % (Auto) Lymph % (Auto) [place] % (Auto) Eos % (Auto) Baso % (Auto) Lymph # (Auto) [place] # (Auto) Eos # (Auto) Baso # (Auto) Abs Immat Gran (auto) Absolute Neuts (auto) Absolute Nucleated RBC Nucleated RBC % (auto) Sodium Potassium Chloride Carbon Dioxide Anion Gap BUN Creatinine Estim Creat Clear Calc Estimated GFR Random Glucose Estimat Average Glucose 82 Hemoglobin A1c % 4.5 Calcium Total Bilirubin Direct Bilirubin AST ALT Alkaline Phosphatase Total Protein Albumin Triglycerides 155 Cholesterol 175 LDL Cholesterol, Calc 107 HDL Cholesterol 37 Vitamin B12 379 Folate 16.3 TSH 1.21 Urine Color Urine Appearance Urine pH Ur Specific [place] Urine Protein Urine Glucose (UA) Urine Ketones Urine Blood Urine Nitrite Ur Leukocyte Esterase Urine RBC Urine WBC Ur Squamous Epith Cells Urine Bacteria Urine Mucus Urine Opiates Screen Urine Fentanyl Screen Ur Barbiturates Screen Ur Phencyclidine Scrn Ur Amphetamines Screen U Benzodiazepines Scrn Urine Cocaine Screen U Marijuana (THC) Screen Ethyl Alcohol COVID-19 ([facility]) COVID-19 Clin Com DS: Summary Hospital Course Hospital Course: Admission to adult psychiatry to address symptoms of recurrent major depression and psychosocial crisis. Care plan, medication regime and out-patient plan of care prior to admission were reviewed. Education was provided regarding management of symptoms, medication and side effects. Nursing and social media marketing manager worked extensively with patient on collateral contacts, plan of care, education regarding management of symptoms, medications and discharge planning. Sertraline and Trazodone were initiated. Time spent discussing smoking cessation with patient: 3 to 10 minutes Status at Discharge Cognitive/behavioral status at discharge: non-psychotic, non-suicidal Functional status at discharge: independent ambulation Overall status at discharge: patient is progressing back to baseline Time Spent with Patient Time attestation: Total time spent providing and/or coordinating discharge services: 40 Time spent: Greater than 30 minutes Discharge Plan Discharge Patient Disposition: Home, Self-Care Discharge Diagnosis: Recurrent major depression, severe Referrals: Therapist: Mary Ann Polanco ([facility]) [Other] - 07/10/21 10:00 am (In office) Psych Prescriber: Destini Jenkins ([facility]) [Other] - 08/06/21 8:00 am (*You will be sent an email with instructions to download the video siva and a link to join the appointment) Psych Prescriber: Destini Jenkins ([facility]) [Other] - 09/02/21 9:00 am (*You will be sent an email with a link to join the appointment*) Louann Christianson MD [Primary Care Provider] - 1 Week (dr. Christianson's office states they will call him within 24 hours with an appointment. they were given his phone number.) Discharge Medications: New nicotine (polacrilex) 4 mg Mini Lozenge 4 mg buccal Q2H PRN (Reason: Nicotine Cravings) Qty: 81 RF: 0 trazodone 100 mg Tablet 100 mg PO BEDTIME PRN (Reason: Insomnia) Qty: 30 RF: 0 hydroxyzine HCl 25 mg Tablet 25 mg PO QID PRN (Reason: Anxiety) Qty: 120 RF: 0 sertraline 50 mg Tablet 50 mg PO DAILY Qty: 30 RF: 0 Discharge Orders: Discharge Order (Routine); Ordered 07/07/21 Ordered By: Ruth Lloyd Diet: advance to usual diet Activity on Discharge: As tolerated Stand Alone Forms: Patient Portal Discharge page, Community Support Care Plan Goals: Mood stabilization Health Concerns: Recurrent major depression,severe Plan of Treatment: Attend scheduled appointments Take medications as directed Assessment: Alert, oriented, non-psychotic, non-suicidal, future oriented Discharge Date/Time: 07/07/21 14:30
== END 2021-07-07 14:30 | disposition home or self-care (01) | DRG 885 ==
LOC: HO.ED 23:58 → HO.PM5 07-03 14:58
PROVIDERS: Admitting Provider Psychiatry & Neurology Psychiatry; Emergency Provider Emergency Medicine; PCP Internal Medicine; Visit Provider Clinical Nurse Specialist Psychiatric/Mental Health, Adult
DX: F33.2 Major depressive disorder, recurrent severe without psychotic features (principal); R45.851 Suicidal ideations; I25.10 Atherosclerotic heart disease of native coronary artery without angina pectoris; I25.2 Old myocardial infarction; F17.210 Nicotine dependence, cigarettes, uncomplicated; Z71.6 Tobacco abuse counseling; Z20.822 Contact with and (suspected) exposure to COVID-19; Z23 Encounter for immunization; Z79.899 Other long term (current) drug therapy
CPT/HCPCS: 36415; 80048; 80061; 80076; 80307; 81001; 82077; 82607; 82746; 83036; 84443; 85025; 87635; 90686; 93005; 99285